=== PATIENT | female | born 2000 | race Caucasian/White ===

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

== ENCOUNTER 2020-06-22 15:42 | Emergency (ER) | payer MEDICAID, OTHER ==
[~2020-06-22] VITALS: Ht 170.1 cm; Wt 63.5 kg
--- NOTE | 2020-06-22 16:09 | ED Fall/Injury ---
General Chief Complaint: Trauma-Non Activation Stated Complaint: POSS HEAD INJURY Nursing Triage Note: Pt ambulatory to ED. Pt reports falling at work last night at [employer]. Pt reports slipping on a puddle of water and hit head on the floor. Pt c/o posterior L sided head pain. Pt also reports hitting L knee on wall. Pt c/o nausea and blurry vision. Source: patient Exam Limitations: no limitations History of Present Illness Date Seen by Provider: Jun 22, 2020 Time Seen by Provider: 15:58 Initial Comments This is a well appearing 20 yo female who presented to the ED for c/o headache, blurred vision this morning, and nausea after slipping in a puddle at work falling backwards striking her head on the floor. Brief second of LOC. Reports blurred vision has improved. Denies neck pain. States she also hit her left knee on the wall during the fall. Able to walk without issue. Pain with palpation to patella. Denies dizziness, weakness, loss of balance, difficulty concentrating, loss of balance. Location Injury Occurred: work-[employer] Allergies and Home Medications Allergies Coded Allergies: No Known Drug Allergies (Unverified , 06/03/18) Home Medications Ondansetron 4 Mg Tab.rapdis, 4 MG PO Q6H PRN for NAUSEA/VOMITING Prescribed by: QUINCY MATTHEW on 06/22/20 [id number] Patient Home Medication List Home Medication List Reviewed: Yes Review of Systems Review of Systems Constitutional: see HPI Eyes: See HPI, Blurred Vision Ears, Nose, Mouth, Throat: no symptoms reported Respiratory: no symptoms reported Cardiovascular: no symptoms reported Gastrointestinal: see HPI Genitourinary: no symptoms reported LMP: Jun 09, 2020 Musculoskeletal: see HPI Skin: other (bruising on left patella ) Psychiatric/Neurological: No Symptoms Reported Past Vmhgfmy-Rxymfq-Slyswu Hx Patient Social History Alcohol Use: Denies Use Smoking Status: Current Everyday Smoker Type Used: Electronic/Vapor 2nd Hand Smoke Exposure: Yes Recent Infectious Disease Expo: No Recent Hopitalizations: No Immunizations Up To Date Date of Influenza Vaccine: Jan 08, 2018 Seasonal Allergies Seasonal Allergies: No Past Medical History Surgeries: Yes Respiratory: No Cardiac: No Neurological: No Last Menstrual Period: Jun 15, 2020 Genitourinary: No Gastrointestinal: No Musculoskeletal: No Endocrine: No HEENT: No Cancer: No Psychosocial: No Integumentary: No Blood Disorders: No Family Medical History No Pertinent Family Hx Physical Exam Vital Signs Vital Signs - First Documented 06/22/20 15:52 Temp 36.1 Pulse 72 Resp 15 B/P (MAP) 126/89 (101) Pulse Ox 99 O2 Delivery Room Air Capillary Refill : Less Than 3 Seconds Height, Weight, BMI Height: 5'7.00" Weight: 160lbs. 2.0oz. 72.532694pv; 21.00 BMI Method:Stated General Appearance: WD/WN, no apparent distress HEENT: PERRL/EOMI, normal ENT inspection, TMs normal Neck: non-tender, full range of motion, supple, normal inspection Cardiovascular: regular rate, rhythm, no murmur Respiratory: lungs clear, normal breath sounds, no respiratory distress Gastrointestinal: normal bowel sounds, non tender, soft Back: normal inspection, no vertebral tenderness Extremities: normal range of motion, non-tender, normal inspection Neurologic/Psychiatric: no motor/sensory deficits, alert, normal mood/affect, oriented x 3; No abnormal gait Skin: normal color, warm/dry, other (ecchymosis on anteiror aspect of left patella. ) [place] Coma Score Best Eye Response: (4) Open Spontaneously Best Verbal Response: (5) Oriented Best Motor Response: (6) Obeys Commands [place] Total: 15 Progress/Results/Core Measures Results/Orders Lab Results Laboratory Tests Test 06/22/20 16:06 Range/Units Urine Color YELLOW Urine Clarity SL CLOUDY Urine pH 6.0 5-9 Urine Specific [place] 1.025 H 1.016-1.022 Urine Protein NEGATIVE NEGATIVE Urine Glucose (UA) NEGATIVE NEGATIVE Urine Ketones NEGATIVE NEGATIVE Urine Nitrite NEGATIVE NEGATIVE Urine Bilirubin NEGATIVE NEGATIVE Urine Urobilinogen 0.2 < = 1.0 MG/DL Urine Leukocyte Esterase NEGATIVE NEGATIVE Urine RBC (Auto) NEGATIVE NEGATIVE Urine RBC NONE /HPF Urine WBC 0-2 /HPF Urine Squamous Epithelial Cells 10-25 H /HPF Urine Crystals NONE /LPF Urine Bacteria FEW H /HPF Urine Casts NONE /LPF Urine Mucus MODERATE H /LPF Urine Culture Indicated NO Urine Opiates Screen NEGATIVE NEGATIVE Urine Oxycodone Screen NEGATIVE NEGATIVE Urine Methadone Screen NEGATIVE NEGATIVE Urine Propoxyphene Screen NEGATIVE NEGATIVE Urine Barbiturates Screen NEGATIVE NEGATIVE Ur Tricyclic Antidepressants Screen NEGATIVE NEGATIVE Urine Phencyclidine Screen NEGATIVE NEGATIVE Urine Amphetamines Screen NEGATIVE NEGATIVE Urine Methamphetamines Screen NEGATIVE NEGATIVE Urine Benzodiazepines Screen NEGATIVE NEGATIVE Urine Cocaine Screen NEGATIVE NEGATIVE Urine Cannabinoids Screen POSITIVE H NEGATIVE My Orders Orders - QUINCY MATTHEW APRN Knee, Left, 3 Views (06/22/20 16:08) Ct Head Wo (06/22/20 16:08) Ua Culture If Indicated (06/22/20 16:09) Drug Screen Stat (Urine) (06/22/20 16:09) Urine Bedside (06/22/20 16:09) Vital Signs/I&O 06/22/20 06/22/20 15:52 17:25 Temp 36.1 36.1 Pulse 72 72 Resp 15 15 B/P (MAP) 126/89 (101) 126/89 (101) Pulse Ox 99 99 O2 Delivery Room Air Room Air Blood Pressure Mean: 101 Progress Progress Note : Progress Note Pt. examined and in no acute distress. Reviewed risk vs. benefits of CT. Due to brief loc, nausea, and ALLAN opted to CT head. Will order x-ray left knee. Denies need for antiemetic at this time, and states pain is tolerable. CT head w/o shows no acute findings. Left knee x-ray shows no acute findings. Reviewed discharge plan and she is agreeable with plan. Diagnostic Imaging Diagonstic Imaging: CT Plain Films/CT/US/NM/MRI: head Comments NAME: THI THAKKAR [facility] REC#: [id number] PT STATUS: REG ER : 2000 PHYSICIAN: QUINCY MATTHEW APRN ADMIT DATE: 06/22/20/ER Signed Date of Exam:06/22/20 CT HEAD WO PROCEDURE: CT head without contrast. TECHNIQUE: Multiple contiguous axial images were obtained through the brain without the use of intravenous contrast. Auto Exposure Controls were utilized during the CT exam to meet ALARA standards for radiation dose reduction. INDICATION: Trauma from a fall The ventricles are normal in size, shape and position. There are no masses or hemorrhages. There are no extra-axial fluid collections. There are no skull fractures seen. IMPRESSION: Negative CT head Dictated by: Dictated on workstation # [id number] Dict: 06/22/20 1635 Trans: 06/22/20 1636 [id number] Interpreted by: RUPA FORD MD Electronically signed by: RUPA FORD MD 06/22/20 1636 Reviewed: Reviewed by Me Diagonstic Imaging: Xray Plain Films/CT/US/NM/MRI: knee Comments NAME: THI THAKKAR [facility] REC#: [id number] PT STATUS: REG ER : 2000 PHYSICIAN: QUINCY MATTHEW APRN ADMIT DATE: 06/22/20/ER Signed Date of Exam:06/22/20 KNEE, LEFT, 3 VIEWS Indication: Fall with left knee injury AP, oblique and lateral views of the left knee are obtained. FINDINGS: No acute fracture or dislocation is identified. No abnormal lytic or sclerotic focus is seen, and there is no radiopaque foreign body. IMPRESSION: No acute abnormality. Dictated by: Dictated on workstation # [id number] Dict: 06/22/20 1635 Trans: 06/22/20 1635 [id number] Interpreted by: MADELYN CHING MD Electronically signed by: MADELYN CHING MD 06/22/20 1635 Reviewed: Reviewed by Me Departure Impression Primary Impression: Fall Additional Impression: Mild concussion Disposition: 01 HOME, SELF-CARE Condition: Improved Departure-Patient Inst. Decision time for Depature: 17:08 Referrals: NO,LOCAL PHYSICIAN (PCP/Family) Primary Care Physician Patient Instructions: Minor Head Injury (DC), Concussion, Adult (DC) Add. Discharge Instructions: Plan: 1. Discharge home. 2. Complete brain rest as discussed: NO TV, PHONE, MUSIC, READING for next co uple days. 3. May take Tylenol as needed for pain per package. 4. Return to ER for any new or concerning symptoms. All discharge instructions reviewed with patient and/or family. Voiced understanding. Scripts Ondansetron (Ondansetron Odt) 4 Mg Tab.rapdis 4 MG PO Q6H PRN for NAUSEA/VOMITING, #30 TAB 0 Refills Prov: QUINCY MATTHEW [place] ADMINISTRATOR 06/22/20 QUINCY MATTHEW CITY ADMINISTRATOR Jun 22, 2020 16:09
[2020-06-22 16:15] LABS: BILIRUBIN,URINE NEGATIVE (NEGATIVE); GLUCOSE, URINE (UA) NEGATIVE (NEGATIVE); KETONES,URINE NEGATIVE (NEGATIVE); LEUKOCYTE ESTERASE ,URINE NEGATIVE (NEGATIVE); NITRITE,URINE NEGATIVE (NEGATIVE); PROTEIN,URINE NEGATIVE (NEGATIVE)
[2020-06-22 16:21] LABS: CLARITY,URINE SL CLOUDY; COLOR,URINE YELLOW
[2020-06-22 16:27] LABS: BACTERIA,URINE FEW /HPF; WBC,URINE 0-2 /HPF
[2020-06-22 16:29] LABS: AMPHETAMINE SCREEN, URINE NEGATIVE (NEGATIVE); BARBITURATE SCREEN URINE NEGATIVE (NEGATIVE); BENZODIAZEPINES SCREEN URINE NEGATIVE (NEGATIVE); CANNABINOID SCREEN, URINE POSITIVE (NEGATIVE); COCAINE SCREEN URINE NEGATIVE (NEGATIVE); METHADONE STAT NEGATIVE (NEGATIVE); METHAMPHETAMINE SCREEN URINE S NEGATIVE (NEGATIVE); OPIATE SCREEN URINE NEGATIVE (NEGATIVE); OXYCODONE STAT NEGATIVE (NEGATIVE); PROPOXYPHENE STAT NEGATIVE (NEGATIVE); TRICYCLIC ANTIDEPRESSANTS SCRE NEGATIVE (NEGATIVE)
--- NOTE | 2020-06-22 16:36 | Diagnostic Imaging Report ---
Indication: Fall with left knee injury AP, oblique and lateral views of the left knee are obtained. FINDINGS: No acute fracture or dislocation is identified. No abnormal lytic or sclerotic focus is seen, and there is no radiopaque foreign body. IMPRESSION: No acute abnormality. Dictated by: Dictated on workstation # [id number]
--- NOTE | 2020-06-22 16:38 | Diagnostic Imaging Report ---
PROCEDURE: CT head without contrast. TECHNIQUE: Multiple contiguous axial images were obtained through the brain without the use of intravenous contrast. Auto Exposure Controls were utilized during the CT exam to meet ALARA standards for radiation dose reduction. INDICATION: Trauma from a fall The ventricles are normal in size, shape and position. There are no masses or hemorrhages. There are no extra-axial fluid collections. There are no skull fractures seen. IMPRESSION: Negative CT head Dictated by: Dictated on workstation # [id number]
[2020-06-22] MEDS ORDERED: ONDA4TAB11 PO (17:19)
[2020-06-22 17:25] VITALS: BP 126/89
== END 2020-06-22 17:25 | disposition home or self-care (01) ==
LOC: EDUNIT# 15:42 → ER 15:46
DX: S06.0X1A Concussion with loss of consciousness of 30 minutes or less, initial encounter (principal); S80.02XA Contusion of left knee, initial encounter; F17.290 Nicotine dependence, other tobacco product, uncomplicated; R40.2410 Glasgow coma scale score 13-15, unspecified time; W01.198A Fall on same level from slipping, tripping and stumbling with subsequent striking against other object, initial encounter
CPT/HCPCS: 70450; 73562; 80306; 81000; 84703